=== PATIENT | female | born 1965 | race Caucasian/White ===

== ENCOUNTER 2019-09-20 09:47 | Observation (INO) ==
--- NOTE | 2019-09-20 10:15 | Emergency Department Note ---
History of Present Illness General Chief complaint: Cardiac Assessment Stated complaint: sob/nausea Time Seen by Provider: 09/20/19 10:00 History of Present Illness Maximum Pain Intensity: 0 This is a 54-year-old female that presents to the emergency department via private vehicle with complaints of "shortness of breath, nausea". The patient states that she is in the area here for work and is originally from the [facility]. She states that she has been sick since 5 PM yesterday. She initially felt dizzy but not vertiginous. She does have a history of Mnire's disease but notes that this feels different. She notes that this was then followed by a sensation of "heart racing". She described as a fluttering in the chest. She then felt short of breath. She states then she felt nauseated as if she is going to have diarrhea. She then began vomiting. She states this lasted for quite a while and into the evening. She then tried to drink water and began vomiting again. She then also had pain between her shoulder blades that lasted about 15 minutes. She then slept a little bit, and then awoke today with persistence of shortness of breath, sensation of fluttering in the chest as well as nauseated. She denies any definite chest pain but notes something does not feel right in her chest. She has a history of PE which was provoked in the past and notes a family history with her father having an CA and passing at age 52. Home Medications Home Medications Medication Instructions Recorded Confirmed Type famotidine [Pepcid AC] 40 mg PO TIDM 09/20/19 09/20/19 History Allergies Allergy/AdvReac Type Severity Reaction Status Date / Time Sulfa (Sulfonamide Allergy Severe Hives Unverified 09/20/19 10:20 Antibiotics) Past Med/Surg History Medical History History of pulmonary embolism Provoked secondary to left leg fracture Mnire's disease Surgical History History of cholecystectomy History of fracture of leg Require surgical fixation History of tonsillectomy Family History Father Myocardial infarction, Onset Age: 52 Fatal CA Coronary heart disease Mother Atrial fibrillation Uncle Myocardial infarction, Onset Age: 52 fatal Brother Stroke, Onset Age: 56 Social History (Updated 09/20/19 @ 14:06 by Chey Bedolla PA-C) Preferred Language: Ukrainian Communication Ability: Effective Engineering Programmer Required: Yes Beliefs That Will Affect Care: None Current Living Situation: Alone Other Information That Helps Us Care for You: No Feels Safe at Home: Yes Smoking Status: Never smoker Hx Alcohol Use: Yes Alcohol Intake Frequency: Holidays/Special Occasions Hx Substance Use: No Review of Systems A total of 10 systems reviewed and were otherwise negative Physical Exam Vital Signs Vital Signs - 24 hr 09/20/19 09:57 09/20/19 10:34 09/20/19 12:00 Temperature 36.6 C Temperature Source Oral Pulse Rate 72 Pulse Rate [Apical] 77 76 Pulse Rhythm Regular Pulse Rhythm [Apical] Regular Regular Pulse Strength Normal Pulse Strength [Apical] Normal Respiratory Rate 19 18 18 Respiratory Effort / Characteristics Non-Labored Spontaneous Non-Labored Spontaneous Non-Labored Spontaneous Respiratory Depth Normal Normal Normal Respiratory Pattern Regular Regular Regular Blood Pressure 138/89 Blood Pressure [Right Arm] 138/95 142/89 H Blood Pressure Mean 105 Blood Pressure Mean [Right Arm] 109 106 Pulse Oximetry 97 98 96 Oxygen Delivery Method Room Air Room Air Room Air Sepsis Recent Fever Within 48 Hours No Sepsis New/Unexplained Change in Mental Status No Sepsis Action Taken by Nursing No Action Required VITAL SIGNS - Vital signs and nursing notes were reviewed. Stable and afebrile. GENERAL -54-year-old female appearing her stated age who is in no acute distress. Communicates well with provider and answers questions appropriately. SKIN - Without rashes. No meningeal or petechial rash. HEAD - NC/AT. EYES - PERRL with EOMI bilaterally. EARS - No deformities of external structures noted on gross examination bilaterally. NOSE - Midline and without cyanosis. No epistaxis or purulent drainage noted. MOUTH/OROPHARYNX - Without perioral cyanosis. NECK - Neck with FROM. LUNGS - Chest wall symmetric without accessory muscle use, intercostals retractions, or central cyanosis. Normal vesicular breath sounds CTA B/L. No wheezes, rales, or rhonchi appreciated. CARDIAC - RRR with S1/S2. No murmur, rubs, or gallops appreciated. ABDOMEN - Abdominal contour normal without pulsations or visible masses. BS normoactive all four quadrants. No tenderness, palpable masses, h epatosplenomegaly, or ascites noted. EXTREMITIES - No clubbing or peripheral cyanosis. No pretibial edema present.+5/5 strength noted in UE/LE bilaterally. NEUROLOGIC - Cranial nerves II through XII grossly intact. Sensory intact to light touch throughout. PSYCH - A&O, and cooperates fully with examiner. Pt is very pleasant and interacts well with examiner. Course Administered Medications Potassium Chloride/Sodium Chloride (Normal Saline W/20 Meq Kcl) 20 meq in 1,000 mls @ 125 mls/hr IV .Q8H DAMIAN Stop: 10/20/19 14:29 Last Admin: 09/20/19 15:57 Dose: 125 mls/hr Documented by: [id number] Ondansetron HCl (Zofran) 4 mg IV Q6H PRN PRN Reason: Nausea Stop: 10/20/19 13:54 Last Admin: 09/20/19 15:01 Dose: 4 mg Documented by: [id number] Discontinued Medications Ioversol (Optiray 320 125ml) 118 ml IV ONCE PRN PRN Reason: Interaction Checking Stop: 09/24/19 11:52 Last Admin: 09/20/19 11:54 Dose: 118 ml Documented by: [id number] Medical Decision Making Laboratory Data Result diagrams: 09/20/19 10:00 09/20/19 10:00 Lab Results 09/20/19 09/20/19 09/20/19 Range/Units 10:00 10:00 10:00 WBC 7.50 (4.8-10.8) K/uL RBC 4.41 (4.2-5.4) M/uL Hgb 13.1 (12.0-16.0) g/dL Hct 39.2 (37-47) % MCV 88.9 (80-100) fL MCH 29.7 (25-34) pg MCHC 33.4 (32-36) g/dL RDW Std Deviation 47.5 H (36.4-46.3) fL RDW Coeff of Jeni 14.5 (11.5-14.5) % Plt Count 387 (130-400) K/uL MPV 9.4 (7.4-10.4) fL Immature Gran % (Auto) 0.3 % Neut % (Auto) 57.3 % Lymph % (Auto) 33.2 % Gaines % (Auto) 6.5 % Eos % (Auto) 2.3 % Baso % (Auto) 0.4 % Immature Gran # (Auto) 0.02 (0.00-0.02) K/uL Neut # (Auto) 4.30 (1.4-6.5) K/uL Lymph # (Auto) 2.49 (1.2-3.4) K/uL Gaines # (Auto) 0.49 (0.11-0.59) K/uL Eos # (Auto) 0.17 (0-0.5) K/uL Baso # (Auto) 0.03 (0-0.2) K/uL PT 10.3 (9.0-12.0) Seconds INR 1.0 (0.9-1.1) APTT 24.8 (21.0-31.0) Seconds PTT Ratio 0.9 D-Dimer 420 (0-500) ug/L FEU Sodium 139 (136-145) mmol/L Potassium 3.1 L (3.5-5.1) mmol/L Chloride 107 (98-107) mmol/L Carbon Dioxide 25 (21-32) mmol/L Anion Gap 7.0 (3-11) BUN 10 (7-18) mg/dl Creatinine 0.95 (0.6-1.2) mg/dl Est Cr Clr Drug Dosing 69.8 ml/min Est GFR ( Amer) 77.6 Est GFR (Non-Af Amer) 67.0 BUN/Creatinine Ratio 10.8 (10-20) Glucose 103 H (70-99) mg/dl Calcium 9.5 (8.5-10.1) mg/dl Magnesium 2.0 (1.8-2.4) mg/dl Total Bilirubin 0.5 (0.2-1) mg/dl AST 26 (15-37) U/L ALT 25 (12-78) U/L Alkaline Phosphatase 99 (45-117) U/L Troponin I < 0.015 (0-0.045) ng/ml Total Protein 8.4 H (6.4-8.2) gm/dl Albumin 4.0 (3.4-5.0) gm/dl Globulin 4.4 H (2.5-4.0) gm/dl Albumin/Globulin Ratio 0.9 (0.9-2) Lipase 83 (73-393) U/L TSH 1.680 (0.300-4.500) uIu/ml Urine Color Urine Appearance (Clear) Urine pH (4.5-7.5) Ur Specific [place] (1.000-1.030) Urine Protein (Negative) Urine Glucose (UA) (Negative) Urine Ketones (Negative) Urine Blood (Negative) Urine Nitrite (Negative) Urine Bilirubin (Negative) Urine Urobilinogen (Negative) Ur Leukocyte Esterase (Negative) Urine WBC (Auto) (0-5) /hpf Urine RBC (Auto) (0-4) /hpf U Hyaline Cast (Auto) (0-5) /lpf U Epithel Cells (Auto) (0-5) /lpf Urine Bacteria (Auto) (Negative) Influenza Type A Ag (Neg) Influenza Type B Ag (Neg) 09/20/19 09/20/19 Range/Units 10:33 10:35 WBC (4.8-10.8) K/uL RBC (4.2-5.4) M/uL Hgb (12.0-16.0) g/dL Hct (37-47) % MCV (80-100) fL MCH (25-34) pg MCHC (32-36) g/dL RDW Std Deviation (36.4-46.3) fL RDW Coeff of Jeni (11.5-14.5) % Plt Count (130-400) K/uL MPV (7.4-10.4) fL Immature Gran % (Auto) % Neut % (Auto) % Lymph % (Auto) % Gaines % (Auto) % Eos % (Auto) % Baso % (Auto) % Immature Gran # (Auto) (0.00-0.02) K/uL Neut # (Auto) (1.4-6.5) K/uL Lymph # (Auto) (1.2-3.4) K/uL Gaines # (Auto) (0.11-0.59) K/uL Eos # (Auto) (0-0.5) K/uL Baso # (Auto) (0-0.2) K/uL PT (9.0-12.0) Seconds INR (0.9-1.1) APTT (21.0-31.0) Seconds PTT Ratio D-Dimer (0-500) ug/L FEU Sodium (136-145) mmol/L Potassium (3.5-5.1) mmol/L Chloride (98-107) mmol/L Carbon Dioxide (21-32) mmol/L Anion Gap (3-11) BUN (7-18) mg/dl Creatinine (0.6-1.2) mg/dl Est Cr Clr Drug Dosing ml/min Est GFR ( Amer) Est GFR (Non-Af Amer) BUN/Creatinine Ratio (10-20) Glucose (70-99) mg/dl Calcium (8.5-10.1) mg/dl Magnesium (1.8-2.4) mg/dl Total Bilirubin (0.2-1) mg/dl AST (15-37) U/L ALT (12-78) U/L Alkaline Phosphatase (45-117) U/L Troponin I (0-0.045) ng/ml Total Protein (6.4-8.2) gm/dl Albumin (3.4-5.0) gm/dl Globulin (2.5-4.0) gm/dl Albumin/Globulin Ratio (0.9-2) Lipase (73-393) U/L TSH (0.300-4.500) uIu/ml Urine Color Dark Yellow Urine Appearance Clear (Clear) Urine pH 5.5 (4.5-7.5) Ur Specific [place] 1.027 (1.000-1.030) Urine Protein Negative (Negative) Urine Glucose (UA) Negative (Negative) Urine Ketones 1+ H (Negative) Urine Blood Negative (Negative) Urine Nitrite Negative (Negative) Urine Bilirubin Negative (Negative) Urine Urobilinogen Negative (Negative) Ur Leukocyte Esterase Trace H (Negative) Urine WBC (Auto) 5-10 H (0-5) /hpf Urine RBC (Auto) 0-4 (0-4) /hpf U Hyaline Cast (Auto) 5-10 H (0-5) /lpf U Epithel Cells (Auto) >30 H (0-5) /lpf Urine Bacteria (Auto) Negative (Negative) Influenza Type A Ag Neg for Influ A (Neg) Influenza Type B Ag Neg for Influ B (Neg) Imaging Data Radiologist's Impression: CT angio chest PE protocol CT DOSE: 515.06 mGycm HISTORY: Cardiac arrhythmia. Chest pain. dyspnea, "heart fluttering" TECHNIQUE: Multiaxial CT images of the chest were performed following the intravenous administration of contrast to evaluate the pulmonary arteries. Maximal intensity projection images were also obtained. A dose lowering technique was utilized adhering to the principles of ALARA. COMPARISON STUDY: None. FINDINGS: There is a normal caliber thoracic aorta with no evidence for dissection. There is no evidence for pulmonary embolus. No pleural effusions. No pneumothorax. The liver and spleen are unremarkable. No mediastinal or hilar lymphadenopathy. The central airways are patent. The lungs are clear. IMPRESSION: No evidence for pulmonary embolus. Lungs are clear. ACT 112: Negative or not required by law. The above report was generated using voice recognition software. It may contain grammatical, syntax or spelling errors. Electronically signed by: Dieter Lozano M.D. 09/20/2019 12:02 PM MDM Narrative Patient was seen and evaluated as above in room B8. Review was performed of nursing notes and vital signs. After obtaining a thorough history and physical examination the above work up was performed. She presents to us today with shortness of breath and feeling nauseated and also a heart racing sensation/fluttering. No personal history of CA or heart trouble but she notes that her father did pass age 52 from an CA. She has a history of PE but this was felt to be provoked in the past. She is not currently anticoagulated. An EKG was obtained and reveals normal sinus rhythm at a rate of [address] bpm. QTc [address] elevation. No previous for comparison. There is no leukocytosis or anemia. No emergent metabolic disturbance. Coags are normal. D-dimer is just within the normal range. Mild hypokalemia at 3.1. Urinalysis does not suggest infection. Influenza testing negative. With the patient's significant family history and negative work-up thus far I do still believe that inpatient management may be warranted. The patient's family history, likely hypercholesterolemia, BMI, age, and presentation I believe are concerning enough to warrant inpatient management to rule out heart etiology/other emergent etiologies. I did offer the patient inpatient versus outpatient management and through shared decision making at this time shows inpatient management. I did discuss the case with the attending physician. I also consulted the hospitalist service. They will evaluate the patient. Please refer to further documentation regarding her stay. Case was discussed with the attending physician. GCS: 15 IMPRESSION: Chest Pain In the evaluation and treatment of this patient, the following differential diagnoses were considered: CA, ASC, Dysrhythmia, Angina, Mediastinitis, GERD, Esophagitis, PE, Pneumonia, Bronchitis, Costochondritis, Rib Fracture, Zoster. Impression & Plan Nausea vomiting and diarrhea, Hypokalemia due to excessive gastrointestinal loss of potassium, Fluttering sensation of heart Discharge Plan Visit Data *Final* Discharge Date/Time: 09/20/19 14:05 Chief Complaint: Cardiac Assessment Stated Complaint: sob/nausea ED Provider: Kyle Cage ED Midlevel Provider: Ananth Toth Discharge Problem: Nausea vomiting and diarrhea, Hypokalemia due to excessive gastrointestinal loss of potassium, Fluttering sensation of heart Patient Disposition: Admitted As Inpatient Condition: Good Discharge Instructions Interventions: ED Discharge Assessment Last Done: 09/20/19 14:05
[2019-09-20 10:24] LABS: Basophils # (auto) 0.03 K/uL (0-0.2); Basophils % (auto) 0.4 %; Eosinophils # (auto) 0.17 K/uL (0-0.5); Eosinophils % (auto) 2.3 %; Hematocrit (blood only) 39.2 % (37-47); Hemoglobin 13.1 g/dL (12.0-16.0); Immature Granulocytes # (auto) 0.02 K/uL (0.00-0.02); Immature Granulocytes % (auto) 0.3 %; Lymphocytes # (auto) 2.49 K/uL (1.2-3.4); Lymphocytes % (auto) 33.2 %; Mean Corpuscular Hemoglobin 29.7 pg (25-34); Mean Corpuscular Hgb Conc 33.4 g/dL (32-36); Mean Corpuscular Volume 88.9 fL (80-100); Mean Platelet Volume 9.4 fL (7.4-10.4); Monocytes # (auto) 0.49 K/uL (0.11-0.59); Monocytes % (auto) 6.5 %; Neutrophils % (auto) 57.3 %; Platelet Count 387 K/uL (130-400); RDW Coefficient of Variation 14.5 % (11.5-14.5); RDW Standard Deviation 47.5 fL (36.4-46.3); Red Blood Count 4.41 M/uL (4.2-5.4)
[2019-09-20 10:33] LABS: Alanine Aminotransferase 25 U/L (12-78); Aspartate Aminotransferase 26 U/L (15-37); BUN Creatinine Ratio 10.8 (10-20); Blood Urea Nitrogen 10 mg/dl (7-18); Calcium 9.5 mg/dl (8.5-10.1); Carbon Dioxide 25 mmol/L (21-32); Chloride 107 mmol/L (98-107); Creatinine Clr Calc Pharmacy 69.8 ml/min; Est GFR (African American) 77.6; Glucose 103 mg/dl (70-99); Lipase 83 U/L (73-393); Potassium 3.1 mmol/L (3.5-5.1); Sodium 139 mmol/L (136-145)
[2019-09-20 10:43] LABS: Albumin Globulin Ratio 0.9 (0.9-2); Alkaline Phosphatase 99 U/L (45-117); Bilirubin,Total 0.5 mg/dl (0.2-1); Globulin 4.4 gm/dl (2.5-4.0); Total Protein 8.4 gm/dl (6.4-8.2); Troponin I < 0.015 ng/ml (0-0.045)
[2019-09-20 10:47] LABS: Appearance Urine Clear (Clear); Bacteria Urine Automated Negative (Negative); Bilirubin Urine Negative (Negative); Blood Urine Negative (Negative); Color Urine Dark Yellow; Epithelial Cell Urine Auto >30 /lpf (0-5); Glucose Urine UA Negative (Negative); Ketones Urine 1+ (Negative); Leukocyte Esterase Urine Trace (Negative); Nitrite Urine Negative (Negative); Protein Urine Negative (Negative); RBC Urine Automated 0-4 /hpf (0-4); Specific Gravity Urine 1.027 (1.000-1.030); Urobilinogen Urine Negative (Negative); pH Urine 5.5 (4.5-7.5)
[2019-09-20 10:48] LABS: D Dimer 420 ug/L FEU (0-500); Partial Thromboplastin Ratio 0.9; Partial Thromboplastin Time 24.8 Seconds (21.0-31.0); Prothrombin Time 10.3 Seconds (9.0-12.0)
[2019-09-20] MEDS ORDERED: OPTIRAY 320 125ml IV PRN (11:53)
--- NOTE | 2019-09-20 12:04 | CT Scan Report ---
CT angio chest PE protocol CT DOSE: 515.06 mGycm HISTORY: Cardiac arrhythmia. Chest pain. dyspnea, "heart fluttering" TECHNIQUE: Multiaxial CT images of the chest were performed following the intravenous administration of contrast to evaluate the pulmonary arteries. Maximal intensity projection images were also obtaine d. A dose lowering technique was utilized adhering to the principles of ALARA. COMPARISON STUDY: None. FINDINGS: There is a normal caliber thoracic aorta with no evidence for dissection. There is no evide nce for pulmonary embolus. No pleural effusions. No pneumothorax. The liver and spleen are unremarkab le. No mediastinal or hilar lymphadenopathy. The central airways are patent. The lungs are clear. IMPRESSION: No evidence for pulmonary embolus. Lungs are clear. ACT 112: Negative or not required by law. The above report was generated using voice recognition software. It may contain grammatical, syntax or spelling errors. Electronically signed by: Dieter Lozano M.D. 09/20/2019 12:02 PM
[2019-09-20] MEDS ORDERED: ONDANSETRON INJ 2 MG/ML 2 ML VIAL IV PRN (13:55)
--- NOTE | 2019-09-20 14:11 | History & Physical Report ---
Date of Service September 20, 2019 Assessment & Plan (1) Dizziness: (2) Nausea vomiting and diarrhea: (3) Fluttering sensation of heart: This is a 54-year-old female who has significant PMH of Mnire's disease, history of provoked PE 20 years ago after left leg fracture presents to ED seco ndary to dizziness, nausea/vomiting/diarrhea x 18hrs. In ED she remained hemodynamically stable, mildly elevated blood pressure. Her EKG revealed normal sinus rhythm 70 bpm with no significant ST or T wave changes. Initial troponin WNL. CBC notably unremarkable, d-dimer negative, TSH, lipase, BMP relatively unremarkable except for hypokalemia at 3.1. Influenza swab was negative. Chest CTA negative for PE or acute abnormality. Given pt complaints of heart fluttering and strong FH will admit under observation for further monitoring Sx likely related to viral gastroenteritis vs food borne illness; however will rule out ACS or arrhythmia admit to med/surg monitor technician heart rhythm trend troponin x 2 - if any abnormality obtain echocardiogram supportive care with IVF 125cc/hr +20meq KCL IV zofran prn IV pepcid BID clear liquid diet and advance as tolerated (4) Hypokalemia due to excessive gastrointestinal loss of potassium: replete within IVF due to not tolerating oral intake Repeat in a.m. (5) GERD (gastroesophageal reflux disease): hold oral [id number] ( which pt is taking too much of and will need educated on this, taking 2 tabs TIDM) Start IV pepcid 20mg BID (6) Mnire's disease: no acute exac States she takes meclizine and lasix for exacerbations (7) DVT prophylaxis: SCD/TEDS Disposition: admit to tele Follow up: Pt will need to arrange routine PCP follow up in [place] Pt was seen and examined in collaboration with Dr. Peña, please see addendum History of Present Illness Chief Complaint: Dizziness, N/V/D x 18hrs. Primary Care Provider: NO PCP This is a 54-year-old female who has significant PMH of Mnire's disease, history of provoked PE 20 years ago after left leg fracture presents to ED secondary to dizziness, nausea/vomiting/diarrhea x 18hrs. she resides in [place] and is currently visiting the area on a business trip. Coworker at bedside. [facility] and last evening after dinner around 5-6 PM she became very dizzy, described as lightheadedness or could pass out which then developed into nausea multiple episodes of emesis and diarrhea. Further complained of, "fluttering in her chest like she was jittery." She has history of Mnire's disease and approximately 3 days ago had some pain in her left ear. She thought maybe she was getting a flare; however, she did not get vertigo- like sensation. This feels entirely different. After multiple episodes of emesis and diarrhea her symptoms started to improve around 8 PM. Around approximately 10 PM she complained of back pain, intrascapular, nonradiating and was concerned, "maybe this is all related to my heart." She tried to lay down and got about 4 to 5 hours of sleep whenever she was awoken again with the dizziness, N/V/D and heart racing/fluttering. She denies any sick contacts. Had 1 glass of wine last night for dinner but otherwise no significant alcohol use. She does elicit to excessive caffeine use yesterday in soda. Denies similar sx in past. Denies any prior hx of heart disease. She has have hx of esophageal spasm and reflux. She admits to taking 2 pecid TID with meals. She does not follow routinely with PCP, but does get annual physical for health insurance in which her cholesterol and blood pressure has always been good. Of concern she does significant FH of heart disease as her father of coronary event at 52. Her uncle and grandfather also at 52 due to [place]. Her oldest brother had a stroke at the age of 56. She denies any significant tobacco abuse, occasional alcohol use and no recreational drug use. In ED she remained hemodynamically stable, mildly elevated blood pressure. Her EKG revealed normal sinus rhythm 70 bpm with no significant ST or T wave changes. Initial troponin WNL. CBC notably unremarkable, d-dimer negative, TSH, lipase, BMP relatively unremarkable except for hypokalemia at 3.1. Influenza swab was negative. Chest CTA negative for PE or acute abnormality. Allergies Allergy/AdvReac Type Severity Reaction Status Date / Time Sulfa (Sulfonamide Allergy Severe Hives Unverified 09/20/19 10:20 Antibiotics) Home Medications Home Medications Medication Instructions Recorded Confirmed Type famotidine [Pepcid AC] 40 mg PO TIDM 09/20/19 09/20/19 History Past Med/Surg History Medical History (Updated 09/20/19 @ 14:17 by Chey Bedolla PA-C) History of pulmonary embolism Provoked secondary to left leg fracture Mnire's disease Surgical History History of cholecystectomy History of fracture of leg Require surgical fixation History of tonsillectomy Family History Father Myocardial infarction, Onset Age: 52 Fatal [place] Coronary heart disease Mother Atrial fibrillation Uncle Myocardial infarction, Onset Age: 52 fatal Brother Stroke, Onset Age: 56 Social History (Updated 09/20/19 @ 14:06 by Chey Bedolla PA-C) Preferred Language: Ukrainian Communication Ability: Effective Feels Safe at Home: Yes Smoking Status: Never smoker Hx Alcohol Use: Yes Alcohol Intake Frequency: Holidays/Special Occasions Hx Substance Use: No Review of Systems Review of Systems: All systems reviewed & are unremarkable except as noted in HPI & below Physical Exam Physical Exam: please refer to Dr. Peña addendum for physical exam findings Results & Data Vital Signs (Past 12 Hours) Vital Signs Temp Pulse Pulse Resp BP BP Pulse Ox 09/20/19 12:00 76 18 142/89 H 96 09/20/19 10:34 77 18 138/95 98 09/20/19 09:57 36.6 C 72 19 138/89 97 Laboratory Results Short CBC 09/20/19 Range/Units 10:00 WBC 7.50 (4.8-10.8) K/uL Hgb 13.1 (12.0-16.0) g/dL Hct 39.2 (37-47) % Plt Count 387 (130-400) K/uL BMP 09/20/19 10:00 Sodium 139 Potassium 3.1 L Chloride 107 Carbon Dioxide 25 BUN 10 Creatinine 0.95 Glucose 103 H Calcium 9.5 Cardiac Enzymes 09/20/19 Range/Units 10:00 Troponin I < 0.015 (0-0.045) ng/ml Liver Function 09/20/19 Range/Units 10:00 Total Bilirubin 0.5 (0.2-1) mg/dl AST 26 (15-37) U/L ALT 25 (12-78) U/L Alkaline Phosphatase 99 (45-117) U/L Albumin 4.0 (3.4-5.0) gm/dl Urine 09/20/19 Range/Units 10:35 Urine Color Dark Yellow Urine Appearance Clear (Clear) Urine pH 5.5 (4.5-7.5) Ur Specific [place] 1.027 (1.000-1.030) Urine Protein Negative (Negative) Urine Glucose (UA) Negative (Negative) Diagnostic Findings Chest CTA: IMPRESSION: No evidence for pulmonary embolus. Lungs are clear. Medications Administered Ioversol (Optiray 320 125ml) 118 ml IV ONCE PRN PRN Reason: Interaction Checking Stop: 09/24/19 11:52 Last Admin: 09/20/19 11:54 Dose: 118 ml Documented by: [id number] ECG Rate (beats per minute): 70 Rhythm: normal sinus Code Status & VTE Plan Code Status Full Code VTE Prophylaxis Plan VTE Prophylaxis will be ordered: Yes Supervising Physician Co-Signing Physician Notes 54-year-old female who has significant PMH of Mnire's disease, history of provoked PE 20 years ago after left leg fracture presents to ED secondary to dizziness, nausea/vomiting/diarrhea x 18hrs History and physical exam performed by tx History significant for sudden onset dizziness, nausea, vomiting, diarrhea, one episode of sharp back pain that lasted for 15mins yesterday, history of GERD and significant family history of cardiac disease. On physical exam General: Well nourished, well hydrated ,obese body habitus, no acute distress and not ill appearing Eyes: PERRL, conjunctivae normal, not pale, anicteric sclerae, EOM intact bilaterally ENMT: External ear and nose normal, oropharynx normal Neck: Normal visual inspection, no tracheal deviation, no swelling noted Respiratory: Normal respiratory effort, no respiratory distress, lungs clear to auscultation, no crackles and no wheezes Cardiovascular: Pulse is RRR. Heart Sounds: normal S1 and normal S2; no murmurs. Vessels: normal peripheral pulses Extremities: no pedal edema Chest (Breasts): Chest: normal inspection of chest Gastrointestinal (Abdomen): Abdomen is not distended, soft, non-tender to palpation, no guarding, no palpable hepatosplenomegaly, normal bowel sounds Musculoskeletal: No cyanosis or clubbing, all extremities motor strength 5/5 Genitourinary: No CVA tenderness Skin: No rash noted on gross inspection, No ulcers noted Neurologic: Alert and oriented x 3, No focal weakness, sensation grossly intact Psychiatric: Alert and oriented x 3, euthymic affect, no depressed affect Lymphatic: No cervical lymphadenopathy EKG is NSR, without St-T changes Negative trop Negative D-dimer, CT PE Normal TSH, lipase Hypokalemia of 3.1 Likely Gastroenteritis Low suspicion for cardiac related pathology Will check another trop and keep on monitor technician overnight IVF IV zofran prn IV Pepcid BID Replete potassium Advance diet as tolerated
[2019-09-20] MEDS ORDERED: ALUMINUM/MAGNESIUM SUSP 30 ML UDC PO PRN (14:33)
[2019-09-20] MEDS ORDERED: INFLUENZA ADMINISTRATION CHARGE ONE (14:52)
[2019-09-20] MEDS ORDERED: INFLUENZA VIRUS QUAD VACCINE 0.5 ML SYR IM ONE (14:52)
[2019-09-20] MEDS: NSS + 20MEQ KCL 20 MEQ/1,000 ML BAG IV SCH (15:57)
[2019-09-20] MEDS: FAMOTIDINE 20 MG in SYRINGE 3 ML IV SCH (21:40)
[2019-09-21] MEDS: NSS + 20MEQ KCL 20 MEQ/1,000 ML BAG IV SCH ×2 (01:19→09:00)
--- NOTE | 2019-09-21 05:48 | Electrocardiogram Report ---
Test Reason : Blood Pressure : / mmHG Vent. Rate : 070 BPM Atrial Rate : 070 BPM P-R Int : 136 ms QRS Dur : 078 ms QT Int : 398 ms P-R-T Axes : 048 020 041 degrees QTc Int : 429 ms Normal sinus rhythm Possible Left atrial enlargement Borderline ECG No previous ECGs available Confirmed by Jey Garcia ([id number]) on 09/21/2019 5:48:00 AM Referred By: REFERRED SELF Confirmed By:Jey Garcia
[2019-09-21] MEDS: ACETAMINOPHEN 325 MG TAB PO PRN ×2 (06:10→12:57)
[2019-09-21 06:11] LABS: Basophils # (auto) 0.02 K/uL (0-0.2); Basophils % (auto) 0.4 %; Eosinophils # (auto) 0.23 K/uL (0-0.5); Eosinophils % (auto) 4.2 %; Hematocrit (blood only) 34.9 % (37-47); Hemoglobin 11.3 g/dL (12.0-16.0); Immature Granulocytes # (auto) 0.02 K/uL (0.00-0.02); Immature Granulocytes % (auto) 0.4 %; Lymphocytes # (auto) 2.53 K/uL (1.2-3.4); Lymphocytes % (auto) 46.1 %; Mean Corpuscular Hemoglobin 29.1 pg (25-34); Mean Corpuscular Hgb Conc 32.4 g/dL (32-36); Mean Corpuscular Volume 89.9 fL (80-100); Monocytes # (auto) 0.38 K/uL (0.11-0.59); Monocytes % (auto) 6.9 %; Neutrophils # (auto) 2.31 K/uL (1.4-6.5); Platelet Count 321 K/uL (130-400); RDW Standard Deviation 49.1 fL (36.4-46.3); Red Blood Count 3.88 M/uL (4.2-5.4); White Blood Count 5.49 K/uL (4.8-10.8)
[2019-09-21 06:24] LABS: Estimated Average Glucose 108 mg/dl; Hemoglobin A1C 5.4 % (4.5-5.6)
[2019-09-21 06:31] LABS: BUN Creatinine Ratio 9.5 (10-20); Calcium 8.3 mg/dl (8.5-10.1); Creatinine Clr Calc Pharmacy 86.8 ml/min; Est GFR (Non-African American) 86.3; Potassium 3.7 mmol/L (3.5-5.1)
[2019-09-21] MEDS: FAMOTIDINE 20 MG in SYRINGE 3 ML IV SCH (08:39)
--- NOTE | 2019-09-21 10:51 | Hospitalist Progress Note ---
Date of Service September 21, 2019 Assessment & Plan (1) Dizziness: (2) Nausea vomiting and diarrhea: (3) Fluttering sensation of heart: This is a 54-year-old female who has significant PMH of Mnire's disease, history of provoked PE 20 years ago after left leg fracture presents to ED at [facility] on 09/20/2019 secondary to dizziness, nausea/vomiting/diarrhea and patient also felt shortness of breath and feeling of chest palpitations Initial EKG revealed normal sinus rhythm 70 bpm with no significant ST or T wave changes No evidence for pulmonary embolus on CTA chest scan Troponins negative x 3 Telemetry monitoring in the hospital did not reveal arrhythmia or tachycardia normal thyroid function labs admission labs notable for hypokalemia of 3.1. After IV fluids with potassium supplements, serum potassium is corrected to 3.7 On exam in 09/21/2019, patient did not have further symptoms Patient is given paper prescriptions of potassium 10 meq daily for 7 days and nausea treatment medication of odansetron 4 mg every 8 hours as needed for nausea or vomiting (12 tablets prescribed) Patient is advised to establish with a primary care doctor in her home town [facility] for follow up evaluation and repeat of electrolytes (4) Hypokalemia due to excessive gastrointestinal loss of potassium: -corrected as above (5) GERD (gastroesophageal reflux disease): -outpatient management (6) Mnire's disease: -History of Mnire's disease - perhaps some pre-admission symptoms contributed by Meniere's disease (7) DVT prophylaxis: SCD/TEDS while inpatient Discharge Diagnosis: Dizziness Nausea vomiting and diarrhea Fluttering sensation of heart Hypokalemia due to excessive gastrointestinal loss of potassium History of Mnire's disease Subjective today - no dizziness. no vomiting. no chest pain. no shortness of breath. breathing on room air. no headache. no difficulties with ambulation. no palpitations. Review of Systems Review of Systems: All systems reviewed & are unremarkable except as noted in HPI & below Physical Exam Constitutional: comfortable Eyes: PERRL, conjunctivae normal, anicteric sclerae EOM intact bilaterally ENMT: external ear and nose normal, oropharynx normal Neck: normal visual inspection Respiratory: normal respiratory effort, lungs clear to auscultation Cardiovascular: RRR, no murmur, no edema Gastrointestinal (Abdomen): normal bowel sounds, soft, nontender, no hepatosplenomegaly Musculoskeletal: Head/Neck/Chest: normocephalic and head atraumatic Neurologic: PERRL, EOMI, accommodation nl, no face palsy, no dysarthria CN's II-XI intact bilaterally Psychiatric: A+Ox3, euthymic affect Results & Data Vital Signs (Past 12 Hours) Vital Signs Temp Pulse Pulse Pulse Resp BP BP 09/21/19 09:46 36.7 C 78 66 18 138/84 124/80 09/21/19 07:44 36.7 C 66 18 138/84 09/21/19 07:26 76 09/21/19 04:19 36.6 C 74 15 125/85 09/20/19 23:47 87 09/20/19 23:42 36.6 C 78 18 124/80 Pulse Ox 09/21/19 09:46 96 09/21/19 07:44 96 09/21/19 07:26 09/21/19 04:19 98 09/20/19 23:47 09/20/19 23:42 95
--- NOTE | 2019-09-21 10:55 | Discharge Summary ---
Date of Service September 21, 2019 Admission HPI Per Admitting Provider This is a 54-year-old female who has significant PMH of Mnire's disease, history of provoked PE 20 years ago after left leg fracture presents to ED secondary to dizziness, nausea/vomiting/diarrhea x 18hrs. she resides in [place] and is currently visiting the area on a business trip. Coworker at bedside. She came to [facility] for meeting on Tuesday and last evening after dinner around 5-6 PM she became very dizzy, described as lightheadedness or could pass out which then developed into nausea multiple episodes of emesis and diarrhea. Further complained of, "fluttering in her chest like she was jittery." She has history of Mnire's disease and approximately 3 days ago had some pain in her left ear. She thought maybe she was getting a flare; however, she did not get vertigo- like sensation. This feels entirely different. After multiple episodes of emesis and diarrhea her symptoms started to improve around 8 PM. Around approximately 10 PM she complained of back pain, intrascapular, nonradiating and was concerned, "maybe this is all related to my heart." She tried to lay down and got about 4 to 5 hours of sleep whenever she was awoken again with the dizziness, N/V/D and heart racing/fluttering. She denies any sick contacts. Had 1 glass of wine last night for dinner but otherwise no significant alcohol use. She does elicit to excessive caffeine use yesterday in soda. Denies similar sx in past. Denies any prior hx of heart disease. She has have hx of esophageal spasm and reflux. She admits to taking 2 pecid TID with meals. She does not follow routinely with PCP, but does get annual physical for health insurance in which her cholesterol and blood pressure has always been good. Of concern she does significant FH of heart disease as her father of coronary event at 52. Her uncle and grandfather also at 52 due to [address]. Her oldest brother had a stroke at the age of 56. She denies any significant tobacco abuse, occasional alcohol use and no recreational drug use. In ED she remained hemodynamically stable, mildly elevated blood pressure. Her EKG revealed normal sinus rhythm 70 bpm with no significant ST or T wave changes. Initial troponin WNL. CBC notably unremarkable, d-dimer negative, TSH, lipase, BMP relatively unremarkable except for hypokalemia at 3.1. Influenza swab was negative. Chest CTA negative for PE or acute abnormality. Admission Exam Per Admitting Provider General: Well nourished, well hydrated ,obese body habitus, no acute distress and not ill appearing Eyes: PERRL, conjunctivae normal, not pale, anicteric sclerae, EOM intact bilaterally ENMT: External ear and nose normal, oropharynx normal Neck: Normal visual inspection, no tracheal deviation, no swelling noted Respiratory: Normal respiratory effort, no respiratory distress, lungs clear to auscultation, no crackles and no wheezes Cardiovascular: Pulse is RRR. Heart Sounds: normal S1 and normal S2; no murmurs. Vessels: normal peripheral pulses Extremities: no pedal edema Chest (Breasts): Chest: normal inspection of chest Gastrointestinal (Abdomen): Abdomen is not distended, soft, non-tender to palpation, no guarding, no palpable hepatosplenomegaly, normal bowel sounds Musculoskeletal: No cyanosis or clubbing, all extremities motor strength 5/5 Genitourinary: No CVA tenderness Skin: No rash noted on gross inspection, No ulcers noted Neurologic: Alert and oriented x 3, No focal weakness, sensation grossly intact Psychiatric: Alert and oriented x 3, euthymic affect, no depressed affect Lymphatic: No cervical lymphadenopathy Principal Diagnosis Dizziness Nausea vomiting and diarrhea Fluttering sensation of heart Hypokalemia due to excessive gastrointestinal loss of potassium History of Mnire's disease Discharge Exam Constitutional comfortable Eyes PERRL, conjunctivae normal, anicteric sclerae EOM intact bilaterally ENMT external ear and nose normal, oropharynx normal Neck normal visual inspection Respiratory normal respiratory effort, lungs clear to auscultation Cardiovascular RRR, no murmur, no edema Gastrointestinal (Abdomen) normal bowel sounds, soft, nontender, no hepatosplenomegaly Musculoskeletal Head/Neck/Chest: normocephalic and head atraumatic Neurologic PERRL, EOMI, accommodation nl, no face palsy, no dysarthria CN's II-XI intact bilaterally Psychiatric A+Ox3, euthymic affect Discharge Data Allergies Allergy/AdvReac Type Severity Reaction Status Date / Time Sulfa (Sulfonamide Allergy Severe Hives Unverified 09/20/19 10:20 Antibiotics) Consultations 09/20/19 12:54 ED Decision to Admit Stat Ordered Studies 09/20/19 11:39 CT angio chest PE protocol Stat Hospital Course (1) Dizziness: (2) Nausea vomiting and diarrhea: (3) Fluttering sensation of heart: This is a 54-year-old female who has significant PMH of Mnire's disease, history of provoked PE 20 years ago after left leg fracture presents to ED at [facility] on 09/20/2019 secondary to dizziness, nausea/vomiting/diarrhea and patient also felt shortness of breath and feeling of chest palpitations Initial EKG revealed normal sinus rhythm 70 bpm with no significant ST or T wave changes No evidence for pulmonary embolus on CTA chest scan Troponins negative x 3 Telemetry monitoring in the hospital did not reveal arrhythmia or tachycardia normal thyroid function labs admission labs notable for hypokalemia of 3.1. After IV fluids with potassium supplements, serum potassium is corrected to 3.7 On exam in 09/21/2019, patient did not have further symptoms Patient is given paper prescriptions of potassium 10 meq daily for 7 days and nausea treatment medication of odansetron 4 mg every 8 hours as needed for nausea or vomiting (12 tablets prescribed) Patient is advised to establish with a primary care doctor in her home [facility] for follow up evaluation and repeat of electrolytes (4) Hypokalemia due to excessive gastrointestinal loss of potassium: -corrected as above (5) GERD (gastroesophageal reflux disease): -outpatient management (6) Mnire's disease: -History of Mnire's disease - perhaps some pre-admission symptoms contributed by Meniere's disease (7) DVT prophylaxis: SCD/TEDS while inpatient Discharge Diagnosis: Dizziness Nausea vomiting and diarrhea Fluttering sensation of heart Hypokalemia due to excessive gastrointestinal loss of potassium History of Mnire's disease Total Time Total Time Spent Total Time Spent (In Minutes): 40 minutes Total Time Includes: Examination of the Patient, Discharge Planning, Medication Reconciliation and Communication With Other Providers Discharge Plan Discharge Items Patient Disposition: Home - Self-Care Reason For Visit: CHEST PAIN Discharge Diagnosis: Dizziness Nausea vomiting and diarrhea Fluttering sensation of heart Hypokalemia due to excessive gastrointestinal loss of potassium History of Mnire's disease Condition on Discharge: Good Activity: Resume your previous activity Non-emergency contact: Primary Care Provider Call non-emergency contact if: you have any medication questions Follow-up/Referrals: PCP,NO [Primary Care Provider] - Diet: Regular Addtl Attending Provider Instructions: This is a 54-year-old female who has significant PMH of Mnire's disease, history of provoked PE 20 years ago after left leg fracture presents to ED at [facility] on 09/20/2019 secondary to dizziness, nausea/vomiting/diarrhea and patient also felt shortness of breath and feeling of chest palpitations Initial EKG revealed normal sinus rhythm 70 bpm with no significant ST or T wave changes No evidence for pulmonary embolus on CTA chest scan Troponins negative x 3 Telemetry monitoring in the hospital did not reveal arrhythmia or tachycardia normal thyroid function labs admission labs notable for hypokalemia of 3.1. After IV fluids with potassium supplements, serum potassium is corrected to 3.7 On exam in 09/21/2019, patient did not have further symptoms Patient is given paper prescriptions of potassium 10 meq daily for 7 days and nausea treatment medication of odansetron 4 mg every 8 hours as needed for nausea or vomiting (12 tablets prescribed) Patient is advised to establish with a primary care doctor in her home town of [place] for follow up evaluation and repeat of electrolytes Pending Studies at Discharge: No Stand-Alone Forms: My [facility], Smoking Cessation Medications and DC Order Prescriptions: New potassium chloride 10 mEq tablet extended release 10 meq PO DAILY 5 Days Qty: 5 RF: 0 ondansetron HCl [Zofran] 4 mg tablet 4 mg PO Q8H PRN (Reason: nausea and vomiting) 4 Days Qty: 12 RF: 0 Continued famotidine [Pepcid AC] 20 mg Tablet 40 mg PO TIDM RF: 0 Discharge Orders: Discharge Order (Routine); Ordered 09/21/19 Ordered By: Waqas Velasquez Admission Data Admit Date/Time: 09/20/19 13:06 Attending Provider: Waqas Velasquez Admit Provider: Cleopatra Peña I. Primary Care Provider: PCP,NO Other Providers: Cleopatra Peña I. Other Interventions: Discharge Summary Assessment (RN) Last Done: 09/21/19 09:46
--- NOTE | 2019-09-22 06:09 | Electrocardiogram Report ---
Test Reason : Blood Pressure : / mmHG Vent. Rate : 075 BPM Atrial Rate : 075 BPM P-R Int : 142 ms QRS Dur : 074 ms QT Int : 400 ms P-R-T Axes : 040 014 040 degrees QTc Int : 446 ms Normal sinus rhythm Normal ECG When compared with ECG of 20-SEP-2019 09:52, No significant change was found Confirmed by Jey Garcia [id number] on 09/22/2019 6:09:28 AM Referred By: REFERRED SELF Confirmed By:Jey Garcia
== END 2019-09-21 13:21 | disposition home or self-care (01) ==
LOC: 1E 09:47 → ED 09:47 → SUATTDRO 13:06 → 1E 14:05 → 2N 17:47